=== PATIENT | male | born 1955 | race Caucasian/White ===

== ENCOUNTER 2022-01-31 05:30 | Day surgery (SDC) | payer MEDICARE, BC ==
[2022-01-24 14:29] LABS: BASOPHILS % (AUTO) 0.5 % (0-1); EOSINOPHILS # (AUTO) 0.2 X10'3 (0-0.9); EOSINOPHILS % (AUTO) 2.2 % (0-6); LYMPHOCYTES # (AUTO) 2.1 X10'3 (1.1-4.8); LYMPHOCYTES % (AUTO) 28.9 % (21-51); MEAN CORPUSCULAR HEMOGLOBIN 27.7 PG (27.0-31.0); MEAN CORPUSCULAR HGB CONC 32.7 g/dL (33.0-36.5); MEAN CORPUSCULAR VOLUME 84.7 FL (78-98); MEAN PLATELET VOLUME 9.1 FL (7.4-10.4); MONOCYTES # (AUTO) 0.8 X10'3 (0-0.9); MONOCYTES % (AUTO) 10.5 % (2-12); NEUTROPHILS # (AUTO) 4.2 X10'3 (1.8-7.7); NEUTROPHILS % (AUTO) 57.9 % (42-75); PRE OP HEMATOCRIT 40.7 % (42.0-52.0); PRE OP HEMOGLOBIN 13.3 g/dL (14.0-17.9); PRE OP PLATELET COUNT 201 X10'3 (140-440); RED BLOOD COUNT 4.81 X10'6 (4.70-6.10); RED CELL DISTRIBUTION WIDTH 13.2 % (11.5-14.5)
[2022-01-24 14:48] LABS: ALBUMIN 4.4 G/DL (3.4-5.0); ALBUMIN/GLOBULIN RATIO 1.4 (1.1-1.5); ALKALINE PHOSPHATASE 55 IU/L (46-116); BLOOD UREA NITROGEN 16 MG/DL (7-18); BUN/CREATININE RATIO 13.2 (5.4-32.0); CALCIUM 9.6 MG/DL (8.5-10.1); CHLORIDE 103 MMOL/L (99-107); CREATININE 1.21 MG/DL (0.60-1.10); PRE OP ALT 38 U/L (30-65); PRE OP ANION GAP 7 (8-16); PRE OP AST 35 U/L (10-37); PRE OP BILIRUB, TOTAL 0.4 MG/DL (0.0-1.0); PRE OP GLUCOSE 90 MG/DL (70-104); PRE OP POTASSIUM 4.2 MMOL/L (3.4-5.1); PRE OP SODIUM 140 MMOL/L (135-145); TOTAL CARBON DIOXIDE 29.8 MMOL/L (24-32); TOTAL PROTEIN 7.6 G/DL (6.4-8.2); eGFR 60 ML/MIN
[~2022-01-31] VITALS: Ht 182.9 cm; Wt 106.0 kg
[~2022-01-31 05:30] MED LIST: ROSU20TA2 PO; ceFAZolin inj. 2,000 MG in dextrose 5%-water 100 ML IV ONE; famotidine 20mg tablet PO ONE; ringers solution, lacted 1,000 ML IV SCH
[2022-01-31 06:00] VITALS: BP 149/80
[2022-01-31] MEDS ORDERED: LIDOcaine 0.5% (5mg/ml) 50ml vial ONE (07:23)
[2022-01-31] MEDS ORDERED: midazolam 1 mg/ML 2ml injection ONE (07:28)
[2022-01-31] MEDS ORDERED: fentaNYL/PF 50MCG/1 ML 2ML syringe ONE (07:28)
[2022-01-31] MEDS ORDERED: morphine 2 MG/ML inj. syringe IV PRN (07:35)
[2022-01-31] MEDS ORDERED: proCHLORperazine 10 MG/2 ml inj IV PRN (07:35)
[2022-01-31] MEDS ORDERED: meperidine/PF 25mg/ml syringe IV PRN ×3 (07:35)
[2022-01-31] MEDS ORDERED: ondansetron/PF 4mg/2ml inj IV PRN (07:35)
[2022-01-31] MEDS ORDERED: ringers solution, lacted 1,000 ML IV SCH (07:35)
[2022-01-31] MEDS ORDERED: morphine 4 MG/ML inj SYRINge IV PRN (07:35)
[2022-01-31] MEDS ORDERED: BUPIVAcaine/PF 2.5 mg/ml (0.25%) 30ml vial ONE (07:48)
[2022-01-31 07:56] VITALS: BP 135/70
--- NOTE | 2022-01-31 07:56 | NUR ---
Received from OR via [facility] , accompanied by Anesthesiologist JOSE and report given by Anesthesiolgist. PATIENT WITH 20G PIV IN LEFT HAND RUNNING LR AT 100. DRESSING TO RIGHT WRIST THAT IS CDI AT THIS TIME. MOVES ALL FINGERS AND THUMB TO RIGHT HAND. + CAP REFILL TO ALL FINGERS WELL. ABHISHEK PAIN AT THIS TIME. Addendum: 01/31/22 at 0803 by Flip Salgado RN, RN Amended: Links added.
[2022-01-31 08:00] VITALS: BP 135/74
[2022-01-31 08:10] VITALS: BP 132/71
[2022-01-31 08:20] VITALS: BP 137/70
== END 2022-01-31 08:26 | disposition home or self-care (01) ==
LOC: PAS 05:30
PROVIDERS: ATTEND Orthopaedic Surgery Hand Surgery
DX: G56.01 Carpal tunnel syndrome, right upper limb (principal); Z79.899 Other long term (current) drug therapy; Z98.890 Other specified postprocedural states
CPT/HCPCS: 29848; 36415; 80053; 85025; 93005; A6222; J0690; J2250; J3010; J3490; J7030; J7060; J7120; Z7506; Z7512; A4215; A7000

== ENCOUNTER 2022-03-28 06:52 | Day surgery (SDC) | payer MEDICARE, BC ==
[2022-03-21 10:12] LABS: BASOPHILS % (AUTO) 0.5 % (0-1); EOSINOPHILS # (AUTO) 0.1 X10'3 (0-0.9); EOSINOPHILS % (AUTO) 2.1 % (0-6); LYMPHOCYTES # (AUTO) 2.1 X10'3 (1.1-4.8); MEAN CORPUSCULAR HEMOGLOBIN 28.9 PG (27.0-31.0); MEAN CORPUSCULAR HGB CONC 33.5 g/dL (33.0-36.5); MEAN CORPUSCULAR VOLUME 86.3 FL (78-98); MEAN PLATELET VOLUME 8.5 FL (7.4-10.4); MONOCYTES # (AUTO) 0.8 X10'3 (0-0.9); MONOCYTES % (AUTO) 11.2 % (2-12); NEUTROPHILS # (AUTO) 3.9 X10'3 (1.8-7.7); NEUTROPHILS % (AUTO) 56.2 % (42-75); PRE OP HEMATOCRIT 41.8 % (42.0-52.0); PRE OP PLATELET COUNT 188 X10'3 (140-440); RED BLOOD COUNT 4.85 X10'6 (4.70-6.10)
[2022-03-21 10:38] LABS: ALBUMIN 4.3 G/DL (3.4-5.0); ALBUMIN/GLOBULIN RATIO 1.3 (1.1-1.5); ALKALINE PHOSPHATASE 52 IU/L (46-116); BLOOD UREA NITROGEN 12 MG/DL (7-18); CALCIUM 9.4 MG/DL (8.5-10.1); CHLORIDE 104 MMOL/L (99-107); CREATININE 1.33 MG/DL (0.60-1.10); PRE OP ALT 45 U/L (30-65); PRE OP ANION GAP 5 (8-16); PRE OP AST 38 U/L (10-37); PRE OP BILIRUB, TOTAL 0.6 MG/DL (0.0-1.0); PRE OP GLUCOSE 94 MG/DL (70-104); PRE OP POTASSIUM 4.7 MMOL/L (3.4-5.1); PRE OP SODIUM 139 MMOL/L (135-145); TOTAL CARBON DIOXIDE 29.9 MMOL/L (24-32); TOTAL PROTEIN 7.6 G/DL (6.4-8.2); eGFR 53 ML/MIN
[2022-03-28] VITALS (7 sets, daily range): BP systolic 125–128; BP diastolic 73–85
[~2022-03-28] VITALS: Ht 182.9 cm; Wt 106.4 kg
[2022-03-28] MEDS ORDERED: LIDOcaine 0.5% (5mg/ml) 50ml vial ONE (07:02)
[2022-03-28] MEDS ORDERED: BUPIVAcaine/PF 2.5 mg/ml (0.25%) 30ml vial ONE (07:57)
[2022-03-28] MEDS ORDERED: fentaNYL/PF 50MCG/1 ML 2ML syringe ONE (09:50)
[2022-03-28] MEDS ORDERED: midazolam 1 mg/ML 2ml injection ONE (09:50)
[2022-03-28] MEDS ORDERED: propofol inj 20 ML IV ONE (10:14)
--- NOTE | 2022-03-28 10:16 | NUR ---
Received from OR via [facility] , accompanied by Anesthesiologist and report given by DR CAMPBELL Anesthesiolgist. PT PRESNTS WITH PIV 20G RIGHT AC, LEFT HAND DRESSING CDI, VSS. Addendum: 03/28/22 at 1025 by Nancy Salgado RN, RN Amended: Links added.
== END 2022-03-28 23:59 | disposition home or self-care (01) ==
LOC: PAS 06:52
PROVIDERS: ATTEND Orthopaedic Surgery Hand Surgery
DX: G56.02 Carpal tunnel syndrome, left upper limb (principal); Z98.890 Other specified postprocedural states; Z79.899 Other long term (current) drug therapy
CPT/HCPCS: 29848; 36415; 80053; 85025; J0690; J2250; J2704; J3010; J3490; J7030; J7060; J7120; Z7506; Z7512; A4215; A7000